=== PATIENT | female | born 1970 | race Hispanic/Latino ===

== ENCOUNTER 2025-05-19 19:11 | Emergency (ER) | payer SELFPAY, OTHER ==
--- NOTE | 2025-05-19 20:52 | RAD REPORT ---
Exam:Shoulder Right 2+ Views History: Right shoulder pain Findings: No fracture or dislocation seen
--- NOTE | 2025-05-19 20:54 | RAD REPORT ---
EXAMINATION: Thoracic Spine Ap/Lat CLINICAL INDICATION: Back pain FINDINGS: No fracture or dislocation seen Mild scoliosis Large anterolateral osteophytes. Mild disc space narrowing involve several levels.
--- NOTE | 2025-05-19 21:01 | RAD REPORT ---
EXAM: CT brain without contrast HISTORY: Headache COMPARISON: None TECHNIQUE: Multiple contiguous axial images were obtained and a CT of the brain without contrast.. Sagittal and coronal reconstruction performed. Automated exposure control, adjustment of the mA and/or kV according to patient size, and/or iterative reconstruction. Unless otherwise specified, incidental f indings do not require dedicated imaging follow-up FINDINGS: An intracranial bleed is not seen Ventricles are normal caliber No extra-axial fluid collection noted No significant hypodensity within the brain No fluid within the visualized sinuses or mastoids noted. IMPRESSION: No acute intracranial abnormality noted. If the patient continues to have symptoms to suggest an acute intracranial abnormality then MRI of th e brain would be recommended.
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
[2025-05-20 05:24] VITALS: TEMP 99; O2SAT 100
[2025-05-20 05:25] VITALS: BP 142/79
== END 2025-05-19 21:22 | disposition home or self-care (01) ==
LOC: ER 19:11
DX: M54.6 Pain in thoracic spine (principal); R51.9 Headache, unspecified; M25.511 Pain in right shoulder; V49.50XA Passenger injured in collision with unspecified motor vehicles in traffic accident, initial encounter
CPT/HCPCS: 70450; 72070